=== PATIENT | female | born 1930 | race Caucasian/White ===

== ENCOUNTER 2017-02-02 04:52 | Inpatient (IN) ==
[2017-01-29 14:03] LABS: Basophils # (Auto) 0 K/mcL (0.0-0.3); Basophils % (Auto) 0.3 % (0.0-2.0); Eosinophils # (Auto) 0.2 K/mcL (0.0-0.7); Eosinophils % (Auto) 2.5 % (0.0-7.0); Granulocytes % (Auto) 65.8 % (38.0-78.0); Lymphocytes # (Auto) 1.2 K/mcL (1.5-4.8); Lymphocytes % (Auto) 19.2 % (15.5-49.0); Mean Cell Volume 90.5 fL (80.0-100.0); Mean Corpuscular HGB Conc 32.8 g/dL (31.0-36.0); Mean Corpuscular Hemoglobin 29.7 pg (26.0-34.0); Monocytes # (Auto) 0.8 K/mcL (0.1-0.9); Monocytes % (Auto) 12.2 % (1.0-12.0); Platelet Count 266 K/mcL (140-440); RBC 4.75 M/mcL (4.00-5.20); Red Cell Distribution Width 14.8 % (11.5-14.5)
[2017-01-29 14:05] LABS: Appearance,Urine CLEAR; Bilirubin,Urine NEG (NEG); Color,Urine STRAW; Glucose,Urine (UA) NEGATIVE (NEG); Leukocyte Esterase,Urine NEG /uL (NEG); Nitrate,Urine NEG (NEG); Protein,Urine NEG (NEG); Specific Gravity,Urine 1.003 (1.000-1.035); Urine Blood NEG mg/dL (<0.03); Urobilinogen,Urine NEG (NEG)
[2017-01-29 14:10] LABS: Blood Urea Nitrogen 10 mg/dl (8-23)
[2017-02-02] MEDS ORDERED: ACETAMINOPHEN 500 MG TABLET PO SCH (05:00)
[2017-02-02] MEDS ORDERED: ceFAZolin 1 GM VIAL IV SCH (05:00)
[2017-02-02] MEDS ORDERED: CELECOXIB 200 MG CAPSULE PO SCH (05:00)
[2017-02-02] MEDS ORDERED: oxyCODONE 10 MG TAB.ER.12H PO SCH (05:00)
[2017-02-02] MEDS ORDERED: PREGABALIN 150 MG CAPSULE PO SCH (05:00)
[2017-02-02] MEDS ORDERED: TRANEXAMIC ACID 1,000 MG/10 ML VIAL IV ONE (07:40)
[2017-02-02] MEDS ORDERED: ePHEDrine 50 MG/ML AMPUL IV ONE (07:40)
[2017-02-02] MEDS ORDERED: GLYCOPYRROLATE 0.2 MG/ML VIAL IV ONE (07:40)
[2017-02-02] MEDS ORDERED: PROPOFOL 200 MG/20 ML VIAL IV ONE (07:40)
[2017-02-02] MEDS ORDERED: LIDOCAINE HCL/PF 100 MG/5 ML SYRINGE IV ONE (07:40)
[2017-02-02] MEDS ORDERED: ONDANSETRON 4 MG/2 ML VIAL IV ONE (07:40)
[2017-02-02] MEDS ORDERED: DEXAMETHASONE 10 MG/ML VIAL IV ONE (07:40)
[2017-02-02] MEDS ORDERED: fentaNYL 250 MCG/5 ML VIAL IV ONE (07:40)
[2017-02-02] MEDS ORDERED: ROPIVACAINE HCL/PF 30 ML VIAL IJ ONE (07:40)
[2017-02-02] MEDS ORDERED: GENTAMICIN SULFATE 800 MG/20 ML VIAL IR ONE (08:03)
[2017-02-02] MEDS ORDERED: FLUMAZENIL 0.1 MG/ML ML IV PRN (08:34)
[2017-02-02] MEDS ORDERED: ONDANSETRON 4 MG/2 ML VIAL IV PRN ×2 (08:34→08:56)
[2017-02-02] MEDS ORDERED: NALOXONE HCL 0.4 MG/ML VIAL IV PRN (08:34)
[2017-02-02] MEDS ORDERED: diphenhydrAMINE 50 MG/ML VIAL IV PRN (08:34)
[2017-02-02] MEDS ORDERED: MEPERIDINE 25 MG/ML SYRINGE IV PRN (08:34)
[2017-02-02] MEDS ORDERED: IPRATROPIUM/ALBUTEROL 3 ML AMPUL.NEB NEB PRN (08:34)
[2017-02-02] MEDS ORDERED: LACTATED RINGERS 250 ML IV PRN (08:34)
[2017-02-02] MEDS ORDERED: METHOCARBAMOL 1,000 MG/10 ML VIAL IV PRN (08:34)
[2017-02-02] MEDS ORDERED: fentaNYL 100 MCG/2 ML VIAL IV PRN (08:34)
[2017-02-02] MEDS ORDERED: HYDROmorphone 2 MG/ML SYRINGE IV PRN ×2 (08:34→08:56)
[2017-02-02] MEDS ORDERED: BENZOCAINE/MENTHOL 1 LOZENGE PO PRN ×2 (08:34→08:56)
[2017-02-02] MEDS ORDERED: LACTATED RINGERS 1,000 ML IV SCH (08:45)
--- NOTE | 2017-02-02 08:55 | Brief Operative Note ---
Date of procedure: 02/02/17 Pre-op diagnosis: Right shoulder djd with rca Post-op diagnosis: same Procedure: right shoulder revers tsa Grafts/Implants: Yes Anesthesia: GETA Findings: severe djd with bicep rupture Complications: none Complications Description: 02/02/17 08:55 none Surgeon: Ford Avalos Christmas Bell Ringer: Monico Goldstein Estimated blood loss (cc): 50 Tourniquet Time (Minutes): 0 Specimens Removed/Pathology: none sent Condition: stable Disposition: PACU
[2017-02-02] MEDS ORDERED: TRANEXAMIC ACID 1,000 MG/10 ML VIAL IV SCH (08:56)
[2017-02-02] MEDS ORDERED: MAGNESIUM HYDROXIDE 30 ML ORAL.SUSP PO PRN (08:56)
[2017-02-02] MEDS ORDERED: FLEETS ADULT ENEMA PR PRN (08:56)
[2017-02-02] MEDS ORDERED: POLYETHYLENE GLYCOL 3350 17 GM PACKET PO PRN (08:56)
[2017-02-02] MEDS ORDERED: ACETAMINOPHEN 325 MG TABLET PO PRN (08:56)
[2017-02-02] MEDS ORDERED: BISACODYL 10 MG SUPP.RECT PR PRN (08:56)
[2017-02-02] MEDS ORDERED: KETOROLAC 15 MG/ML VIAL IV PRN (08:56)
[2017-02-02] MEDS ORDERED: HYDROCODONE/APAP 7.5/325MG TABLET PO PRN (08:56)
[2017-02-02] MEDS ORDERED: AMOXICILLIN/POTASSIUM CLAV 875 MG TABLET PO SCH (09:00)
--- NOTE | 2017-02-02 09:37 | Operative Note ---
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 PROCEDURE: Right reverse total shoulder with biceps tenolysis. SURGEON: Ford Aavlos MD. CORRECTIONAL PROGRAM OFFICER: Monico Goldstein PA-C. ANESTHESIA: General LMA anesthesia. CLIPPER COUNTERS: Lizandro De La Torre CRNA. COMPLICATIONS: None. ESTIMATED BLOOD LOSS: 50 mL. DESCRIPTION OF PROCEDURE: The patient was brought to the operating room and put to sleep with general LMA anesthesia. Once asleep, the patient had the right shoulder sterilely prepped and draped in the usual sterile fashion. After we confirmed the operative site, we made a deltopectoral approach to the shoulder. Once this was done, we retracted the deltoid laterally. Once lateral we then identified the cephalic vein. The cephalic vein was bleeding so a #2 Vicryl was placed as a ligature on the distal portion. This stopped any bleeding in the cephalic vein. We exposed the joint and released the subscap. There was a tear of the supraspinatus. The subscap was tagged and moved medially. We then subluxed the humerus anteriorly and performed a 360 degree capsulotomy. We made our neck cut below the articular surface at the anatomical neck region and set this with 30 degrees of retroversion. Once done, we placed a metal plate on the humeral surface, subluxed this posteriorly. Once this was done, we then exposed the glenoid. The glenoid had a remnant of the biceps tendon present. This was excised and then a 300 degree capsulotomy was performed around the glenoid. Once done, we irrigated thoroughly. We then noticed that the glenoid was very small. We placed centrally the guide pin. Once done, we irrigated thoroughly and reamed to the size 36. Once done, we then placed a 28 mm glenosphere with a 32 mm central screw, a 24 and a 28 screw and a 20 mm screw as additional locking screws, all of which had excellent fixation. We then placed a 36 mm glenosphere with 2 mm of offset. Once this was done, we irrigated and then prepared the humerus. The humerus was broached up to size 11 stem. We trialed the size 11 with a standard and then a +6 poly was inserted. This seemed to be the most appropriate in size. We tapped into the cementless stem and the +6 poly. This was reduced. We irrigated thoroughly. We inspected the subscap for repair. This seemed to be too tight to repair after a trial at fixing this. We irrigated thoroughly, closed the deltopectoral interval with 2-0 Vicryl and closed the skin with 2-0 Vicryl and adhesive closure. The patient tolerated this well without complication. RBH:arturo Job ID: [id number] Doc ID: [id number] Ford Avalos MD
--- NOTE | 2017-02-02 10:01 | XRay Report ---
HISTORY: Reason for Exam:post-op reverse shoulder FINDINGS: There is a well-positioned reverse total shoulder prosthesis. No fracture is present and there are no abnormal soft tissue calcifications around the joint. IMPRESSION: Well-positioned right shoulder prosthesis Interpreted and Authenticated by: Harley Blanco 02/02/17
[2017-02-02] MEDS: DOCUSATE SODIUM 100 MG CAPSULE PO SCH ×2 (10:23→21:00)
[2017-02-02] MEDS: 0.45 % SODIUM CHLORIDE 1,000 ML IV SCH ×2 (11:35→19:45)
[2017-02-02] MEDS: 0.9 % SODIUM CHLORIDE 10 ML SYRINGE IV SCH ×2 (13:18→21:05)
[2017-02-02] MEDS: ceFAZolin 1 GM VIAL IV SCH ×2 (15:21→23:15)
[2017-02-02] MEDS ORDERED: LEVOTHYROXINE 50 MCG TABLET PO SCH (21:00)
[2017-02-02] MEDS ORDERED: SENNOSIDES 1 TABLET PO SCH (21:00)
[2017-02-02] MEDS ORDERED: amLODIPine 5 MG TABLET PO SCH (21:00)
[2017-02-02] MEDS ORDERED: GABAPENTIN 400 MG CAPSULE PO SCH (21:00)
[2017-02-02] MEDS ORDERED: SIMVASTATIN 10 MG TABLET PO SCH (21:00)
[2017-02-02] MEDS ORDERED: TEMAZEPAM 15 MG CAPSULE PO PRN (21:00)
[2017-02-03] MEDS: 0.45 % SODIUM CHLORIDE 1,000 ML IV SCH ×3 (01:13→09:00)
[2017-02-03] MEDS: 0.9 % SODIUM CHLORIDE 10 ML SYRINGE IV SCH (05:32)
--- NOTE | 2017-02-03 06:45 | Orthopedic Progress Note ---
Subjective Patient information: Note initiated : 02/03/17 at 6:44 am Service Date, if different from initiated Date: [] Patient: Elena Boyd 86 y/o F admitted on 02/02/17 for Right Reverse Total Shoulder Arthroplasty. Chief Complaint: [Pt is stable this morning on post operative day 1 without any significant concerns or complaints. Patients vital signs have remained stable. Patients dressing is dry and exhibits a grossly intact neurovascular and neuromotor exam. Patients 10 point ROS is otherwise negative. ] Objective Vital signs: Vital Signs Temp Pulse Resp BP Pulse Ox 02/03/17 03:10 98.7 F 72 20 118/60 92 02/02/17 23:30 98.0 F 71 16 116/74 97 02/02/17 20:00 98.2 F 71 18 94/54 95 02/02/17 16:00 98.1 F 18 112/76 97 02/02/17 15:29 14 97 02/02/17 14:05 98 02/02/17 13:50 98.2 F 79 22 122/62 97 02/02/17 13:00 79 02/02/17 12:55 122/62 02/02/17 12:35 12 96 02/02/17 12:01 97.9 F 66 12 113/60 98 02/02/17 11:55 113/60 99 02/02/17 11:28 97.6 F 66 18 110/59 97 02/02/17 11:25 110/59 97 02/02/17 10:55 125/62 99 02/02/17 10:52 98 02/02/17 10:40 111/60 98 02/02/17 10:25 121/64 98 02/02/17 10:15 66 14 98 02/02/17 10:10 96.2 F L 12 111/68 97 02/02/17 09:59 97.5 F L 69 19 120/56 96 02/02/17 09:48 71 20 118/61 96 02/02/17 09:40 71 12 118/54 99 02/02/17 09:35 69 15 130/57 99 02/02/17 09:30 67 10 L 119/52 99 02/02/17 09:25 68 10 L 132/59 99 02/02/17 09:21 96.3 F L 75 10 L 130/64 100 Intake and Output 02/02/17 02/03/17 02/03/17 21:59 05:59 13:59 Intake Total 3180 / 3180 1300 / 1300 Output Total 300 / 300 450 / 450 Balance 2880 / 2880 850 / 850 Intake: IV 1000 / 1000 1000 / 1000 Sodium Chloride 0.45% 1, 1000 / 1000 1000 / 1000 000 ml @ 125 mls/hr IV . Q8H PHYLLIS Rx#:[id number] Oral 2180 / 2180 300 / 300 Output: Void Amount 300 / 300 450 / 450 Other: Meal Ice cream Percent of Meal Consumed 100% Feeding Ability Independent # Voids 1 Weight 111 lb Intake & Output: Intake & Output 02/02/17 02/03/17 02/03/17 21:59 05:59 13:59 Intake Total 3180 / 3180 1300 / 1300 Output Total 300 / 300 450 / 450 Balance 2880 / 2880 850 / 850 Weight 111 lb Intake: IV 1000 / 1000 1000 / 1000 Sodium Chloride 0.45% 1, 1000 / 1000 1000 / 1000 000 ml @ 125 mls/hr IV . Q8H PHYLLIS Rx#:[id number] Oral 2180 / 2180 300 / 300 Output: Void Amount 300 / 300 450 / 450 Other: Meal Ice cream Percent of Meal Consumed 100% Feeding Ability Independent # Voids 1 Incision: Yes healing Incision clean and dry: Yes Dressing: Yes clean, Yes dry Weight bearing status: full Neurological exam IM: Yes motor sensory intact, Yes neurovascular intact Extremities exam IM: Yes Foot pink and warm, Yes neurovascular intact - Labs CBC & BMP: 01/29/17 11:56 01/29/17 11:56 Labs: Orthopedic Labs 01/29/17 11:56 PT 14.0 INR 1.1 APTT 29 01/29/17 11:56 Hgb 14.1 Hct 43.0 Assessment and Plan (1) Hx of total shoulder replacement Patient has been educated regarding wound care and dressings, follow up recommendations, and medication use. We will f/u with the patient within 2-3 weeks for wound check. Status: Acute
--- NOTE | 2017-02-03 06:50 | Discharge Summary ---
Ortho Discharge - TSA - Patient Instructions Diet: Regular Diet Activity: activity as tolerated, weight bearing as tolerated Total Shoulder Protocol: Leave immobilizer in place except for bathing and ROM. Abduction pillow. Continue to wear sling until seen by physician. Codman Pendulum : These exercises use momentum produced by your body to move your shoulder joint. Bend your knees and shift your weight to your front leg, then back, allowing your arm to swing in the same directions. Using the same technique, alternately shift your weight between your right and left legs, allowing your arm to swing from side to side. These exercises are also performed in counterclockwise and clockwise circular motions. Typically these exercises are performed several times per day, for a set number repetitions or minutes, such as 20 times in a row or 5 minutes at a time. Dressing Care: May shower in 2 days - Problem Maintenance (1) Hx of total shoulder replacement Status: Acute - Follow Up Plan Disposition: Home, Self-Care Prognosis: Good Rehab Potential: Good I certify that the patient requires SNF services: No Overall status at discharge: patient is progressing back to baseline - Orders For Discharge Prescriptions: Docusate Sodium [Colace] 100 mg PO BID #60 capsule Hydrocodone/APAP 7.5/325Mg [[place] 7.5/325Mg] 1 - 2 tab PO Q4HP PRN #75 tablet PRN Reason: Pain
[2017-02-03] MEDS: DOCUSATE SODIUM 100 MG CAPSULE PO SCH (08:26)
== END 2017-02-03 10:35 | disposition home or self-care (01) ==
LOC: MEDSUR 04:52
PROVIDERS: ADMIT Orthopaedic Surgery; ATTEND Orthopaedic Surgery